=== PATIENT | female | born 2000 ===

== ENCOUNTER 2018-01-21 12:40 | Emergency (ER) | payer SELFPAY ==
--- NOTE | 2018-01-21 12:48 | ER Report ---
History and Physical Time Seen By MD: 12:44 HPI/ROS CHIEF COMPLAINT: abdominal pain, sore throat, nausea with vomiting HISTORY OF PRESENT ILLNESS: Patient is a 17-year-old female here with complaints of nausea, vomiting, diffuse abdominal pain. Vomiting started approximately 2200 last night. She also reports having sore throat several days ago and roommates that were reportedly having similar symptoms and were diagnosed with strep throat. Patient reports she started having her menses however does report some pain in the lower periumbilical area. Patient is afebrile at time of evaluation. Patient denies chest pain, shortness of breath, cough, blurred vision, headache, back pain. Patient does admit to being sexually active. REVIEW OF SYSTEMS: Respiratory: No cough, no dyspnea. Cardiovascular: No chest pain, no palpitations. Gastrointestinal: + vomiting, + abdominal pain, diffuse Musculoskeletal: No back pain. Throat: + mild resolving sore throat Allergies: Coded Allergies: copper (Verified Allergy, Mild, HIVES , 01/21/18) nickel (Verified Allergy, Mild, HIVES, 01/21/18) Home Meds Active Scripts Ondansetron (ZOFRAN ODT) 4 Mg Tab.rapdis, 4 MG PO Q6H Y for NAUSEA/VOMITING, # 20 TAB.JESSICA 0 Refills Prov:EMANIEMELY Nicole DO 01/21/18 Constitutional Vital Sign - Last 24 Hours 01/21/18 01/21/18 01/21/18 01/21/18 12:47 13:00 13:30 14:00 Temp 98.5 Pulse 106 62 65 Resp 18 B/P (MAP) 126/85 118/89 (99) 116/87 (97) 108/77 (87) Pulse Ox 95 95 91 95 O2 Delivery Room Air 01/21/18 14:30 B/P (MAP) 112/72 (85) Pulse Ox 94 Intake and Output 01/21/18 01/21/18 01/22/18 15:00 23:00 07:00 Intake Total 1000 ml Balance 1000 ml Physical Exam General Appearance: The patient is alert, has no immediate need for airway protection and no current signs of toxicity. No acute distress Eyes: Pupils equal and round no injection. Oropharynx: Mild erythema without exudate Respiratory: Chest is non tender, lungs are clear to auscultation. Cardiac: + tachycardia and regular rhythm Gastrointestinal: Abdomen is soft and + diffuse tenderness on palpation, no masses, bowel sounds normal. Musculoskeletal: Neck: Neck is supple and non tender. Extremities have full range of motion and are non tender. Skin: No rashes or lesions. DIFFERENTIAL DIAGNOSIS: After history and physical exam differential diagnosis was considered for abdominal pain including but not limited to appendicitis, cholecystitis, gastritis and urinary tract infection, strep throat, mononucleosis. Medical Decision Making Data Points Result Diagram: 01/21/18 1252 01/21/18 1252 Laboratory Hematology Test 01/21/18 12:46 01/21/18 12:52 Urine Color Yellow Urine Clarity Slightly-cloudy Urine pH 5.0 pH (4.8-9.5) Urine Specific [place] 1.032 Urine Protein 30 mg/dL (NEGATIVE) Urine Glucose (UA) 50 mg/dL (NEGATIVE) Urine Ketones 80 mg/dL (NEGATIVE) Urine Blood Large (NEGATIVE) Urine Nitrite Negative (NEGATIVE) Urine Bilirubin Negative (NEGATIVE) Urine Urobilinogen Negative mg/dL (0.2-1.9) Urine Leukocyte Esterase Trace (NEGATIVE) Urine RBC 193 /HPF (0-2/HPF) Urine WBC 15 /HPF (0-5/HPF) Urine Squamous Epithelial Cells Many /LPF (</=FEW) Urine Renal Epithelial Cells Few /LPF (NONE-FEW) Urine Bacteria Negative /HPF (NONE-FEW) Urine Mucus Few /HPF (NONE-FEW) Red Blood Count 5.77 M/uL (4.17-5.56) Mean Corpuscular Volume 84.2 fL (80.0-96.0) Mean Corpuscular Hemoglobin 28.9 pg (26.0-33.0) Mean Corpuscular Hemoglobin Concent 34.3 g/dL (32.0-36.0) Red Cell Distribution Width 13.3 % (11.5-14.5) Mean Platelet Volume 7.3 fL (7.2-11.1) Neutrophils (%) (Auto) 89.1 % (39.4-72.5) Lymphocytes (%) (Auto) 7.1 % (17.6-49.6) Monocytes (%) (Auto) 3.4 % (4.1-12.4) Eosinophils (%) (Auto) 0.1 % (0.4-6.7) Basophils (%) (Auto) 0.3 % (0.3-1.4) Nucleated RBC Relative Count (auto) 0.0 /100WBC Neutrophils # (Auto) 16.5 K/uL (2.0-7.4) Lymphocytes # (Auto) 1.3 K/uL (1.3-3.6) Monocytes # (Auto) 0.6 K/uL (0.3-1.0) Eosinophils # (Auto) 0.0 K/uL (0.0-0.5) Basophils # (Auto) 0.1 K/uL (0.0-0.1) Nucleated RBC Absolute Count (auto) 0.00 K/uL Sodium Level 138 mmol/L (137-145) Potassium Level 3.5 mmol/L (3.5-5.0) Chloride Level 95 mmol/L (98-107) Carbon Dioxide Level 27 mmol/L (22-31) Blood Urea Nitrogen 12 mg/dl (7-18) Creatinine 0.60 mg/dl (0.52-1.04) Glomerular Filtration Rate Calc > 60.0 Random Glucose 118 mg/dl (75-110) Calcium Level 9.7 mg/dl (8.4-10.2) Total Bilirubin 0.4 mg/dl (0.2-1.3) Aspartate Amino Transf (AST/SGOT) 22 U/L (0-35) Alanine Aminotransferase (ALT/SGPT) 26 U/L (0-56) Alkaline Phosphatase 119 U/L (0-126) Total Protein 8.3 gm/dl (6.3-8.2) Albumin 4.3 g/dl (3.5-5.0) Lipase 35 U/L (23-300) Human Chorionic Gonadotropin, Qual Negative (NEGATIVE) Monoscreen Negative (NEGATIVE) Group A Streptococcus Screen Positive (NEGATIVE) Chemistry Test 01/21/18 12:46 01/21/18 12:52 Urine Color Yellow Urine Clarity Slightly-cloudy Urine pH 5.0 pH (4.8-9.5) Urine Specific [place] 1.032 Urine Protein 30 mg/dL (NEGATIVE) Urine Glucose (UA) 50 mg/dL (NEGATIVE) Urine Ketones 80 mg/dL (NEGATIVE) Urine Blood Large (NEGATIVE) Urine Nitrite Negative (NEGATIVE) Urine Bilirubin Negative (NEGATIVE) Urine Urobilinogen Negative mg/dL (0.2-1.9) Urine Leukocyte Esterase Trace (NEGATIVE) Urine RBC 193 /HPF (0-2/HPF) Urine WBC 15 /HPF (0-5/HPF) Urine Squamous Epithelial Cells Many /LPF (</=FEW) Urine Renal Epithelial Cells Few /LPF (NONE-FEW) Urine Bacteria Negative /HPF (NONE-FEW) Urine Mucus Few /HPF (NONE-FEW) White Blood Count 18.6 k/uL (4.5-11.0) Red Blood Count 5.77 M/uL (4.17-5.56) Hemoglobin 16.7 g/dL (12.0-16.0) Hematocrit 48.6 % (34.0-47.0) Mean Corpuscular Volume 84.2 fL (80.0-96.0) Mean Corpuscular Hemoglobin 28.9 pg (26.0-33.0) Mean Corpuscular Hemoglobin Concent 34.3 g/dL (32.0-36.0) Red Cell Distribution Width 13.3 % (11.5-14.5) Platelet Count 314 K/uL (150-450) Mean Platelet Volume 7.3 fL (7.2-11.1) Neutrophils (%) (Auto) 89.1 % (39.4-72.5) Lymphocytes (%) (Auto) 7.1 % (17.6-49.6) Monocytes (%) (Auto) 3.4 % (4.1-12.4) Eosinophils (%) (Auto) 0.1 % (0.4-6.7) Basophils (%) (Auto) 0.3 % (0.3-1.4) Nucleated RBC Relative Count (auto) 0.0 /100WBC Neutrophils # (Auto) 16.5 K/uL (2.0-7.4) Lymphocytes # (Auto) 1.3 K/uL (1.3-3.6) Monocytes # (Auto) 0.6 K/uL (0.3-1.0) Eosinophils # (Auto) 0.0 K/uL (0.0-0.5) Basophils # (Auto) 0.1 K/uL (0.0-0.1) Nucleated RBC Absolute Count (auto) 0.00 K/uL Glomerular Filtration Rate Calc > 60.0 Calcium Level 9.7 mg/dl (8.4-10.2) Total Bilirubin 0.4 mg/dl (0.2-1.3) Aspartate Amino Transf (AST/SGOT) 22 U/L (0-35) Alanine Aminotransferase (ALT/SGPT) 26 U/L (0-56) Alkaline Phosphatase 119 U/L (0-126) Total Protein 8.3 gm/dl (6.3-8.2) Albumin 4.3 g/dl (3.5-5.0) Lipase 35 U/L (23-300) Human Chorionic Gonadotropin, Qual Negative (NEGATIVE) Monoscreen Negative (NEGATIVE) Group A Streptococcus Screen Positive (NEGATIVE) Urinalysis Test 01/21/18 12:46 Urine Color Yellow Urine Clarity Slightly-cloudy Urine pH 5.0 pH (4.8-9.5) Urine Specific [place] 1.032 Urine Protein 30 mg/dL (NEGATIVE) Urine Glucose (UA) 50 mg/dL (NEGATIVE) Urine Ketones 80 mg/dL (NEGATIVE) Urine Blood Large (NEGATIVE) Urine Nitrite Negative (NEGATIVE) Urine Bilirubin Negative (NEGATIVE) Urine Urobilinogen Negative mg/dL (0.2-1.9) Urine Leukocyte Esterase Trace (NEGATIVE) Urine RBC 193 /HPF (0-2/HPF) Urine WBC 15 /HPF (0-5/HPF) Urine Squamous Epithelial Cells Many /LPF (</=FEW) Urine Renal Epithelial Cells Few /LPF (NONE-FEW) Urine Bacteria Negative /HPF (NONE-FEW) Urine Mucus Few /HPF (NONE-FEW) EKG/Imaging Imaging 2 VIEWS CHEST INDICATION: Epigastric pain and nausea. COMPARISON: None available FINDINGS: Cardiomediastinal silhouette and pulmonary vessels within normal limits. There is no focal infiltrate or lobar consolidation. There is no pneumothorax or pleural effusion. No nodule. Upper abdomen is unremarkable. No acute bony abnormality. The visualized spine does show mild scoliotic curvature. IMPRESSION: 1. No acute cardiopulmonary process. ED Course/Re-evaluation ED Course Patient is a 17-year-old female here with complaints of nausea, vomiting, resolving sore throat, diffuse vague abdominal pain. Patient reportedly has had multiple sick contacts in the form of roommates 1 of which was diagnosed with strep throat presumptively. Due to persistent emesis, labs and electrolytes were checked. Patient reportedly started having her menses yesterday however Beta hCG was checked due to sexually active status. Urinalysis showed blood consistent with menses but HCG was negative. Patient was given a fluid bolus, Zofran and Toradol for analgesia. Strep rapid was +. Pen G was administered. Patient was advised to follow up in the next week for follow up care. Patient was stable at time of discharge. Decision to Disposition Date: January 21, 2018 Decision to Disposition Time: 13:00 Depart Departure Latest Vital Signs Vital Signs Date Time Temp Pulse Resp B/P (MAP) Pulse Ox O2 Delivery O2 Flow Rate FiO2 01/21/18 14:30 112/72 (85) 94 01/21/18 14:00 65 01/21/18 12:47 98.5 18 Room Air Impression: Primary Impression: Nausea & vomiting Additional Impression: Abdominal pain Condition: Improved Disposition: HOME OR SELF-CARE New Scripts Ondansetron (ZOFRAN ODT) 4 Mg Tab.rapdis 4 MG PO Q6H Y for NAUSEA/VOMITING, #20 TAB.JESSICA 0 Refills Prov: EMELY JOAQUIN DO 01/21/18 Patient Instructions: Abdominal Pain (ED), Acute Nausea and Vomiting (ED), Ondansetron (By mouth, Into the mouth) Additional Instructions: You may take 1 tablet of Zofran every 6-8 hours as needed for nausea. Please follow-up with her family doctor in the next week and return promptly if you develop difficulty swallowing, fevers, difficulty breathing, chest pain, shortness breath, worsening abdominal pain. Problem Qualifiers EMELY JOAQUIN DO January 21, 2018 12:48
[2018-01-21] MEDS ORDERED: NS(*) 0.9% 1000 ML BAG 1,000 ML IV ONE (12:54)
[2018-01-21] MEDS ORDERED: KETOROLAC 30 MG/ML VIAL IVP ONE (12:55)
[2018-01-21] MEDS ORDERED: ONDANSETRON 4 MG/2 ML VIAL IVP ONE (12:55)
[2018-01-21 13:07] LABS: PLATELET COUNT, AUTOMATED 314 K/uL (150-450)
[2018-01-21] MEDS ORDERED: PENICILLIN G BENZATHIN IM SUSP IM ONLY ONE (13:25)
[2018-01-21] MEDS ORDERED: ONDA4TAB PO (13:33)
[2018-01-21 14:30] VITALS: BP 112/72
--- NOTE | 2018-01-21 14:34 | RADIOLOGY IMAGING REPORT ---
FACILITY: [facility] [place] PATIENT NAME: Priscila Murrell : 2000 MR: [id number] V: [id number] EXAM DATE: ORDERING PHYSICIAN: EMELY JOAQUIN TECHNOLOGIST: Location: [facility] Patient: Priscila Murrell : 2000 Visit/Account:[id number] Date of Sevice: 01/21/2018 2 VIEWS CHEST INDICATION: Epigastric pain and nausea. COMPARISON: None available FINDINGS: Cardiomediastinal silhouette and pulmonary vessels within normal limits. There is no focal infiltrate or lobar consolidation. There is no pneumothorax or pleural effusion. No nodule. Upper abdomen is unremarkable. No acute bony abnormality. The visualized spine does show mild scoliot ic curvature. IMPRESSION: 1. No acute cardiopulmonary process. Report Dictated By: Tobi Voss at 01/21/2018 2:27 PM Report E-Signed By: Tobi Voss at 01/21/2018 2:30 PM WSN:[id number]
== END 2018-01-21 14:50 | disposition home or self-care (01) ==
LOC: ER 12:48
DX: R10.33 Periumbilical pain (principal); R11.2 Nausea with vomiting, unspecified
CPT/HCPCS: 71046; 81001; 83690; 84703; 85025; 86308; 87081; 87880; 96361; 96374; 96375; 99284; J0561; J1885; J2405; J7030; 82040; 82247; 82310; 82374; 82435; 82565; 82947; 84075; 84132; 84155; 84295; 84450; 84460; 84520

== ENCOUNTER 2018-10-08 11:29 | Emergency (ER) | payer SELFPAY ==
[~2018-10-08 11:29] MED LIST: ONDA4TAB PO
[2018-10-08] MEDS ORDERED: NS(*) 0.9% 1000 ML BAG 1,000 ML IV ONE ×2 (11:48→14:10)
[2018-10-08] MEDS ORDERED: FAMOTIDINE(*) 20MG/50ML PREMIX 50 ML IVPB ONE (11:48)
[2018-10-08] MEDS ORDERED: ONDANSETRON 4 MG/2 ML VIAL IVP ONE ×2 (11:50→13:50)
[2018-10-08] MEDS ORDERED: PROMETHAZINE 25 MG/ML 1 ML AMP IVP ONE (12:05)
[2018-10-08 12:06] LABS: PLATELET COUNT, AUTOMATED 277 K/uL (150-450)
--- NOTE | 2018-10-08 12:24 | ER Report ---
History and Physical Time Seen By MD: 12:00 Hx. of Stated Complaint: Pt. has been vomiting and diaphoretic since 3:00pm. Vomited 5 or 6 times since this morning. Also having diarrhea. Been around others who have been sick. Pt. works in [employer]. Afebrile in triage. Possible chance of HPI/ROS CHIEF COMPLAINT: Vomiting HISTORY OF PRESENT ILLNESS: Patient is a 18-year-old female who presents to the emergency department with complaint of intractable vomiting and sweating since approximately 3 AM this morning. She mitts to having loose watery stools without blood or mucus. She does admit that she's been around other people who are sick at work. Report being sexually active and there is possibility of . Patient denies any other significant past medical history other than scoliosis. Patient reports epigastric abdominal pain that is fairly severe. He denies any fevers or chills. REVIEW OF SYSTEMS: Constitutional: No fever, no chills. Eyes: No discharge. ENT: No sore throat. Cardiovascular: No chest pain, no palpitations. Respiratory: No cough, no shortness of breath. Gastrointestinal: Epigastric abdominal pain, nausea vomiting and diarrhea Genitourinary: No hematuria. Musculoskeletal: No back pain. Skin: No rashes. Neurological: No headache. Allergies: Coded Allergies: copper (Verified Allergy, Mild, HIVES , 01/21/18) nickel (Verified Allergy, Mild, HIVES, 01/21/18) Home Meds Active Scripts Ondansetron Hcl (ZOFRAN) 4 Mg Tablet, 4 MG PO Q8H for Nausea, #15 TAB 0 Refills Prov:JENELLE RAMIREZ MD 10/08/18 Ondansetron (ZOFRAN ODT) 4 Mg Tab.rapdis, 4 MG PO Q6H PRN for NAUSEA/VOMITING, #20 TAB.JESSICA 0 Refills Prov:EMELY JOAQUIN DO 01/21/18 Past Medical/Surgical History Noncontributory towards this chief complaints. Constitutional Vital Sign - Last 24 Hours 10/08/18 10/08/18 11:34 11:38 Temp 97.6 Pulse 73 B/P (MAP) 124/83 (97) 124/83 Pulse Ox 95 O2 Delivery Room Air Physical Exam General Appearance: The patient is alert, has no immediate need for airway protection and no signs of toxicity. Eyes: Pupils equal and round no pallor or injection. ENT, Mouth: Mucous membranes are moist. Respiratory: There are no retractions, lungs are clear to auscultation. Cardiovascular: Regular rate and rhythm. Gastrointestinal: Epigastric abdominal pain no focal tenderness or palpable masses Neurological: Awake and alert Skin: Warm and dry, no rashes. Musculoskeletal: Neck is supple non tender. Extremities are nontender, nonswollen and have full range of motion. Medical Decision Making Data Points Result Diagram: 10/08/18 1150 10/08/18 1150 Laboratory Hematology Test 10/08/18 11:50 10/08/18 14:23 Red Blood Count 5.18 M/uL (4.17-5.56) Mean Corpuscular Volume 87.9 fL (80.0-96.0) Mean Corpuscular Hemoglobin 29.0 pg (26.0-33.0) Mean Corpuscular Hemoglobin Concent 33.0 g/dL (32.0-36.0) Red Cell Distribution Width 13.6 % (11.5-14.5) Mean Platelet Volume 7.6 fL (7.2-11.1) Neutrophils (%) (Auto) 57.7 % (39.4-72.5) Lymphocytes (%) (Auto) 30.9 % (17.6-49.6) Monocytes (%) (Auto) 10.0 % (4.1-12.4) Eosinophils (%) (Auto) 0.7 % (0.4-6.7) Basophils (%) (Auto) 0.7 % (0.3-1.4) Nucleated RBC Relative Count (auto) 0.1 /100WBC Neutrophils # (Auto) 6.7 K/uL (2.0-7.4) Lymphocytes # (Auto) 3.6 K/uL (1.3-3.6) Monocytes # (Auto) 1.1 K/uL (0.3-1.0) Eosinophils # (Auto) 0.1 K/uL (0.0-0.5) Basophils # (Auto) 0.1 K/uL (0.0-0.1) Nucleated RBC Absolute Count (auto) 0.01 K/uL Peripheral Blood Smear No Y/N Sodium Level 138 mmol/L (137-145) Potassium Level 3.5 mmol/L (3.5-5.0) Chloride Level 107 mmol/L (98-107) Carbon Dioxide Level 21 mmol/L (22-31) Blood Urea Nitrogen 12 mg/dl (7-18) Creatinine 0.50 mg/dl (0.52-1.04) Glomerular Filtration Rate Calc > 60.0 Random Glucose 119 mg/dl (75-110) Calcium Level 9.4 mg/dl (8.4-10.2) Total Bilirubin 0.4 mg/dl (0.2-1.3) Aspartate Amino Transf (AST/SGOT) 20 U/L (0-35) Alanine Aminotransferase (ALT/SGPT) 25 U/L (0-56) Alkaline Phosphatase 74 U/L (0-126) Total Protein 7.8 g/dl (6.3-8.2) Albumin 4.5 g/dl (3.5-5.0) Lipase 57 U/L (23-300) Human Chorionic Gonadotropin, Qual Positive (NEGATIVE) Human Chorionic Gonadotropin, Quant 40046 mIU/ml Helicobacter pylori IgG Antibody Negative (NEGATIVE) Urine Color Yellow Urine Clarity Slightly-cloudy Urine pH 5.0 pH (4.8-9.5) Urine Specific [place] 1.030 Urine Protein Trace mg/dL (NEGATIVE) Urine Glucose (UA) Negative mg/dL (NEGATIVE) Urine Ketones >=80 mg/dL (NEGATIVE) Urine Blood Negative (NEGATIVE) Urine Nitrite Negative (NEGATIVE) Urine Bilirubin Negative (NEGATIVE) Urine Urobilinogen Negative mg/dL (0.2-1.9) Urine Leukocyte Esterase Negative (NEGATIVE) Urine RBC None /HPF (0-2/HPF) Urine WBC 3-4 /HPF (0-5/HPF) Urine Squamous Epithelial Cells Few /LPF (</=FEW) Urine Amorphous Crystals Few /HPF Urine Bacteria Few /HPF (NONE-FEW) Urine Mucus None /HPF (NONE-FEW) Chemistry Test 10/08/18 11:50 10/08/18 14:23 White Blood Count 11.5 k/uL (4.5-11.0) Red Blood Count 5.18 M/uL (4.17-5.56) Hemoglobin 15.0 g/dL (12.0-16.0) Hematocrit 45.5 % (34.0-47.0) Mean Corpuscular Volume 87.9 fL (80.0-96.0) Mean Corpuscular Hemoglobin 29.0 pg (26.0-33.0) Mean Corpuscular Hemoglobin Concent 33.0 g/dL (32.0-36.0) Red Cell Distribution Width 13.6 % (11.5-14.5) Platelet Count 277 K/uL (150-450) Mean Platelet Volume 7.6 fL (7.2-11.1) Neutrophils (%) (Auto) 57.7 % (39.4-72.5) Lymphocytes (%) (Auto) 30.9 % (17.6-49.6) Monocytes (%) (Auto) 10.0 % (4.1-12.4) Eosinophils (%) (Auto) 0.7 % (0.4-6.7) Basophils (%) (Auto) 0.7 % (0.3-1.4) Nucleated RBC Relative Count (auto) 0.1 /100WBC Neutrophils # (Auto) 6.7 K/uL (2.0-7.4) Lymphocytes # (Auto) 3.6 K/uL (1.3-3.6) Monocytes # (Auto) 1.1 K/uL (0.3-1.0) Eosinophils # (Auto) 0.1 K/uL (0.0-0.5) Basophils # (Auto) 0.1 K/uL (0.0-0.1) Nucleated RBC Absolute Count (auto) 0.01 K/uL Peripheral Blood Smear No Y/N Glomerular Filtration Rate Calc > 60.0 Calcium Level 9.4 mg/dl (8.4-10.2) Total Bilirubin 0.4 mg/dl (0.2-1.3) Aspartate Amino Transf (AST/SGOT) 20 U/L (0-35) Alanine Aminotransferase (ALT/SGPT) 25 U/L (0-56) Alkaline Phosphatase 74 U/L (0-126) Total Protein 7.8 g/dl (6.3-8.2) Albumin 4.5 g/dl (3.5-5.0) Lipase 57 U/L (23-300) Human Chorionic Gonadotropin, Qual Positive (NEGATIVE) Human Chorionic Gonadotropin, Quant 81520 mIU/ml Helicobacter pylori IgG Antibody Negative (NEGATIVE) Urine Color Yellow Urine Clarity Slightly-cloudy Urine pH 5.0 pH (4.8-9.5) Urine Specific [place] 1.030 Urine Protein Trace mg/dL (NEGATIVE) Urine Glucose (UA) Negative mg/dL (NEGATIVE) Urine Ketones >=80 mg/dL (NEGATIVE) Urine Blood Negative (NEGATIVE) Urine Nitrite Negative (NEGATIVE) Urine Bilirubin Negative (NEGATIVE) Urine Urobilinogen Negative mg/dL (0.2-1.9) Urine Leukocyte Esterase Negative (NEGATIVE) Urine RBC None /HPF (0-2/HPF) Urine WBC 3-4 /HPF (0-5/HPF) Urine Squamous Epithelial Cells Few /LPF (</=FEW) Urine Amorphous Crystals Few /HPF Urine Bacteria Few /HPF (NONE-FEW) Urine Mucus None /HPF (NONE-FEW) Urinalysis Test 10/08/18 14:23 Urine Color Yellow Urine Clarity Slightly-cloudy Urine pH 5.0 pH (4.8-9.5) Urine Specific [place] 1.030 Urine Protein Trace mg/dL (NEGATIVE) Urine Glucose (UA) Negative mg/dL (NEGATIVE) Urine Ketones >=80 mg/dL (NEGATIVE) Urine Blood Negative (NEGATIVE) Urine Nitrite Negative (NEGATIVE) Urine Bilirubin Negative (NEGATIVE) Urine Urobilinogen Negative mg/dL (0.2-1.9) Urine Leukocyte Esterase Negative (NEGATIVE) Urine RBC None /HPF (0-2/HPF) Urine WBC 3-4 /HPF (0-5/HPF) Urine Squamous Epithelial Cells Few /LPF (</=FEW) Urine Amorphous Crystals Few /HPF Urine Bacteria Few /HPF (NONE-FEW) Urine Mucus None /HPF (NONE-FEW) EKG/Imaging Imaging 10/08/2018 12:57:01 pm outside ultrasound was performed which showed a pseudo- gestational sac but no definitive IUP isn't recognized. We will obtain formal pelvic ultrasound. FACILITY: [facility] - [place] PATIENT NAME: Priscila Murrell : 2000 MR: [id number] V: [id number] EXAM DATE: ORDERING PHYSICIAN: JENELLE RAMIREZ TECHNOLOGIST: Location: [facility] Patient: Priscila Murrell : 2000 Visit/Account:[id number] Date of Sevice: 10/08/2018 EXAMINATION: Transabdominal first trimester OB ultrasound HISTORY: Positive hCG COMPARISON: None. LMP: Unknown. FINDINGS: Only a partial examination was performed. The patient declined transvaginal imaging and did not allow the technologist to complete the transabdominal ultrasound examination. The uterus is anteverted in position with normal size and morphology. An intrauterine gestational sac is present containing a yolk sac and pole. By transabdominal imaging the crown-rump length measures 0.42 cm, corresponding with a gestational age of 6 weeks and 1 day. The technologist reports that cardiac activity was seen during real-time imaging. Cardiac activity however was not documented before the patient prematurely terminated the examination. Neither ovary is discretely visualized on this limited transabdominal examination. No free fluid in the pelvis. IMPRESSION: 1. Limited exam. Only a partial transabdominal examination was completed before the patient declined additional imaging. 2. Confirmed intrauterine . By transabdominal imaging the crown-rump length corresponds with a gestational age of 6 weeks and 1 day. Corresponding AZEEM 06/02/2019. 3. cardiac activity was not documented prior to termination of the exam but was reportedly visualized by the technologist during real-time imaging. 4. Nonvisualization of the ovaries. No free fluid in the pelvis. Report Dictated By: Larry Negron MD at 10/08/2018 2:49 PM Report E-Signed By: Larry Negron MD at 10/08/2018 2:56 PM WSN:[id number] Course/Re-evaluation ED Course 10/08/2018 12:24:30 pm patient with intractable vomiting at this time we'll start an IV and check CBC CMP lipase. We'll check test. We'll give IV Zofran and IV fluids. Re-evaluation 10/08/2018 1:12:27 pm no vomiting improved after 4 of Zofran and 25 mg of IV Phenergan. Awaiting OB ultrasound 10/08/2018 1:49:01 pm patient refusing his femoral ultrasound this time secondary to nausea will redosed Zofran. Decision to Disposition Date: Oct 08, 2018 Decision to Disposition Time: 15:06 Depart Departure Latest Vital Signs Vital Signs Date Time Temp Pulse Resp B/P (MAP) Pulse Ox O2 Delivery O2 Flow Rate FiO2 10/08/18 11:38 97.6 73 124/83 95 Room Air Impression: Primary Impression: First trimester Additional Impression: Hyperemesis Condition: Improved Disposition: HOME OR SELF-CARE Referrals: MICAH MASON MD Call in the next 24 hours to [facility] for your current New Scripts Ondansetron Hcl (ZOFRAN) 4 Mg Tablet 4 MG PO Q8H for Nausea, #15 TAB 0 Refills Prov: JENELLE RAMIREZ MD 10/08/18 Departure Forms: ER Transition Record, Medications Reconciliation, Off Work/School Form, School or Work Release?: Work Number of days to be released: 2 Patient Portal Information Patient Instructions: First Trimester (ED), Hyperemesis Gravidarum (GEN) Problem Qualifiers JENELLE RAMIREZ MD Oct 08, 2018 12:24
[2018-10-08 13:30] VITALS: BP 106/57
[2018-10-08] MEDS ORDERED: diphenhydrAMINE 50 MG/ML VIAL IVP ONE (14:10)
[2018-10-08] MEDS ORDERED: ONDA4TAB97 PO (14:55)
--- NOTE | 2018-10-08 15:02 | RADIOLOGY IMAGING REPORT ---
FACILITY: [facility] [place] PATIENT NAME: Priscila Murrell : 2000 MR: [id number] V: [id number] EXAM DATE: ORDERING PHYSICIAN: JENELLE RAMIREZ TECHNOLOGIST: Location: [facility] [place] Patient: Priscila Murrell : 2000 Visit/Account:[id number] Date of Sevice: 10/08/2018 EXAMINATION: Transabdominal first trimester OB ultrasound HISTORY: Positive hCG COMPARISON: None. LMP: Unknown. FINDINGS: Only a partial examination was performed. The patient declined transvaginal imaging and did not allow the technologist to complete the transabdominal ultrasound examination. The uterus is anteverted in position with normal size and morphology. An intrauterine gestational sac is present containing a yolk sac and pole. By transabdominal imaging the crown-rump length ronny sures 0.42 cm, corresponding with a gestational age of 6 weeks and 1 day. The technologist reports that cardiac activity was seen during real-time imaging. Cardiac activ ity however was not documented before the patient prematurely terminated the examination. Neither ovary is discretely visualized on this limited transabdominal examination. No free fluid in t he pelvis. IMPRESSION: 1. Limited exam. Only a partial transabdominal examination was completed before the patient declined additional imaging. 2. Confirmed intrauterine . By transabdominal imaging the crown-rump length corresponds with a gestational age of 6 weeks and 1 day. Corresponding AZEEM 06/02/2019. 3. cardiac activity was not documented prior to termination of the exam but was reportedly visu alized by the technologist during real-time imaging. 4. Nonvisualization of the ovaries. No free fluid in the pelvis. Report Dictated By: Larry Negron MD at 10/08/2018 2:49 PM Report E-Signed By: Larry Negron MD at 10/08/2018 2:56 PM [id number]
== END 2018-10-08 15:59 | disposition home or self-care (01) ==
LOC: ER 11:42
DX: Z33.1 Pregnant state, incidental (principal); Z3A.01 Less than 8 weeks gestation of pregnancy
CPT/HCPCS: 76801; 81001; 83690; 84702; 84703; 85025; 86677; 87491; 87591; 96361; 96365; 96375; 96376; 99284; J1200; J2405; J2550; J3490; J7030; 82040; 82247; 82310; 82374; 82435; 82565; 82947; 84075; 84132; 84155; 84295; 84450; 84460; 84520

== ENCOUNTER 2018-10-10 04:17 | Emergency (ER) | payer SELFPAY ==
[~2018-10-10 04:17] MED LIST changes: +ONDA4TAB97 PO
--- NOTE | 2018-10-10 04:23 | ER Report ---
History and Physical Time Seen By MD: 04:20 HPI/ROS CHIEF COMPLAINT: Vomiting HISTORY OF PRESENT ILLNESS: Patient is a 18-year-old female who presents to the emergency department with complaint of intractable vomiting and nausea since approximately. She seen in the emergency department on 10/08/2013 for similar symptoms. She was diagnosed with a 1st rest her by ultrasound. I treated with IV fluids and antiemetics and was discharged home. Patient did have a 1st trimester ultrasound but was incomplete due to inability to patient tolerated procedure. Based on last menstrual period by of 08/30/2018 patient is approximately 12 weeks 3 days estimated gestational age. This is her 1st . She also admits to some periumbilical abdominal discomfort. She denies any fevers or chills she denies any vaginal bleeding or discharge. REVIEW OF SYSTEMS: Constitutional: No fever, no chills. Eyes: No discharge. ENT: No sore throat. Cardiovascular: No chest pain, no palpitations. Respiratory: No cough, no shortness of breath. Gastrointestinal: Periumbilical abdominal pain, nausea, vomiting no diarrhea Genitourinary: No hematuria. No Vaginal discharge or bleeding Musculoskeletal: No back pain. Skin: No rashes. Neurological: No headache. Allergies: Coded Allergies: copper (Verified Allergy, Mild, HIVES , 10/10/18) nickel (Verified Allergy, Mild, HIVES, 10/10/18) Home Meds Active Scripts Famotidine (PEPCID) 20 Mg Tablet, 20 MG PO BID for 30 Days, #60 TAB 0 Refills Prov:JENELLE RAMIREZ MD 10/10/18 Metoclopramide Hcl (REGLAN) 10 Mg Tablet, 10 MG PO Q6H for Nausea, #30 TAB 0 Refills Prov:JENELLE RAMIREZ MD 10/10/18 Ondansetron Hcl (ZOFRAN) 4 Mg Tablet, 4 MG PO Q8H for Nausea, #15 TAB 0 Refills Prov:JENELLE RAMIREZ MD 10/08/18 Ondansetron (ZOFRAN ODT) 4 Mg Tab.rapdis, 4 MG PO Q6H PRN for NAUSEA/VOMITING, #20 TAB.JESSICA 0 Refills Prov:EMELY JOAQUIN DO 01/21/18 Past Medical/Surgical History Approximately 4 weeks with 1st Constitutional Vital Sign - Last 24 Hours 10/10/18 10/10/18 10/10/18 10/10/18 04:21 04:22 04:30 04:32 Temp 98.3 Pulse 54 50 Resp 16 B/P (MAP) 147/97 (114) 147/97 139/95 (110) Pulse Ox 92 97 O2 Delivery Room Air 10/10/18 10/10/18 10/10/18 10/10/18 04:47 05:00 05:02 05:17 Pulse 53 74 60 B/P (MAP) 119/70 (86) Pulse Ox 94 93 95 10/10/18 10/10/18 10/10/18 05:30 05:35 05:50 Pulse 66 Pulse Ox 96 81 98 Intake and Output0 10/09/18 10/09/18 10/10/18 15:00 23:00 07:00 Intake Total 2050 ml Balance 2050 ml Physical Exam General Appearance: Awake and alert no acute respiratory distress Eyes: Pupils equal and round no injection. Respiratory: Chest is non tender, lungs are clear to auscultation. Cardiac: regular rate and rhythm Gastrointestinal: Abdomen is soft and non tender, no masses, bowel sounds normal. Musculoskeletal: Neck: Neck is supple and non tender. Extremities have full range of motion and are non tender. Skin: No rashes or lesions. Medical Decision Making Data Points Result Diagram: 10/10/1842810/10/18428 Laboratory Hematology Test 10/10/18 04:29 Red Blood Count 5.43 M/uL (4.17-5.56) Mean Corpuscular Volume 87.0 fL (80.0-96.0) Mean Corpuscular Hemoglobin 29.1 pg (26.0-33.0) Mean Corpuscular Hemoglobin Concent 33.4 g/dL (32.0-36.0) Red Cell Distribution Width 13.6 % (11.5-14.5) Mean Platelet Volume 7.9 fL (7.2-11.1) Neutrophils (%) (Auto) 84.0 % (39.4-72.5) Lymphocytes (%) (Auto) 7.3 % (17.6-49.6) Monocytes (%) (Auto) 8.4 % (4.1-12.4) Eosinophils (%) (Auto) 0.0 % (0.4-6.7) Basophils (%) (Auto) 0.3 % (0.3-1.4) Nucleated RBC Relative Count (auto) 0.0 /100WBC Neutrophils # (Auto) 11.6 K/uL (2.0-7.4) Lymphocytes # (Auto) 1.0 K/uL (1.3-3.6) Monocytes # (Auto) 1.2 K/uL (0.3-1.0) Eosinophils # (Auto) 0.0 K/uL (0.0-0.5) Basophils # (Auto) 0.0 K/uL (0.0-0.1) Nucleated RBC Absolute Count (auto) 0.00 K/uL Sodium Level 138 mmol/L (137-145) Potassium Level 3.2 mmol/L (3.5-5.0) Chloride Level 99 mmol/L (98-107) Carbon Dioxide Level 25 mmol/L (22-31) Blood Urea Nitrogen 15 mg/dl (7-18) Creatinine 0.60 mg/dl (0.52-1.04) Glomerular Filtration Rate Calc > 60.0 Random Glucose 102 mg/dl (75-110) Calcium Level 9.5 mg/dl (8.4-10.2) Total Bilirubin 0.4 mg/dl (0.2-1.3) Aspartate Amino Transf (AST/SGOT) 19 U/L (0-35) Alanine Aminotransferase (ALT/SGPT) 29 U/L (0-56) Alkaline Phosphatase 77 U/L (0-126) Total Protein 8.1 g/dl (6.3-8.2) Albumin 4.7 g/dl (3.5-5.0) Lipase 54 U/L (23-300) Helicobacter pylori IgG Antibody Negative (NEGATIVE) Chemistry Test 10/10/18 04:29 White Blood Count 13.8 k/uL (4.5-11.0) Red Blood Count 5.43 M/uL (4.17-5.56) Hemoglobin 15.8 g/dL (12.0-16.0) Hematocrit 47.2 % (34.0-47.0) Mean Corpuscular Volume 87.0 fL (80.0-96.0) Mean Corpuscular Hemoglobin 29.1 pg (26.0-33.0) Mean Corpuscular Hemoglobin Concent 33.4 g/dL (32.0-36.0) Red Cell Distribution Width 13.6 % (11.5-14.5) Platelet Count 273 K/uL (150-450) Mean Platelet Volume 7.9 fL (7.2-11.1) Neutrophils (%) (Auto) 84.0 % (39.4-72.5) Lymphocytes (%) (Auto) 7.3 % (17.6-49.6) Monocytes (%) (Auto) 8.4 % (4.1-12.4) Eosinophils (%) (Auto) 0.0 % (0.4-6.7) Basophils (%) (Auto) 0.3 % (0.3-1.4) Nucleated RBC Relative Count (auto) 0.0 /100WBC Neutrophils # (Auto) 11.6 K/uL (2.0-7.4) Lymphocytes # (Auto) 1.0 K/uL (1.3-3.6) Monocytes # (Auto) 1.2 K/uL (0.3-1.0) Eosinophils # (Auto) 0.0 K/uL (0.0-0.5) Basophils # (Auto) 0.0 K/uL (0.0-0.1) Nucleated RBC Absolute Count (auto) 0.00 K/uL Glomerular Filtration Rate Calc > 60.0 Calcium Level 9.5 mg/dl (8.4-10.2) Total Bilirubin 0.4 mg/dl (0.2-1.3) Aspartate Amino Transf (AST/SGOT) 19 U/L (0-35) Alanine Aminotransferase (ALT/SGPT) 29 U/L (0-56) Alkaline Phosphatase 77 U/L (0-126) Total Protein 8.1 g/dl (6.3-8.2) Albumin 4.7 g/dl (3.5-5.0) Lipase 54 U/L (23-300) Helicobacter pylori IgG Antibody Negative (NEGATIVE) ED Course/Re-evaluation Clinical Indication for ER IV: Hydration, IV Access ED Course 10/10/2018 4:26:40 am this time will be to check abdominal labs, we'll check urinalysis we'll give IV fluids along with Zofran. Patient just had a ultrasound less than 48 hours ago which showed intrauterine with pole. 10/10/2018 5:50:09 am 2 L of normal saline infused patient feeling somewhat better although she did just try to drink some Gatorade and immediately felt the need to vomit. We'll try some IV Reglan at this time. We'll discharge on Reglan and Pepcid. Patient has still not made 1st OB appointment with Dr. Bryan yet she was encouraged to do so. Decision to Disposition Date: Oct 10, 2018 Decision to Disposition Time: 06:28 Depart Departure Latest Vital Signs Vital Signs Date Time Temp Pulse Resp B/P (MAP) Pulse Ox O2 Delivery O2 Flow Rate FiO2 10/10/18 05:50 66 98 10/10/18 05:00 119/70 (86) 10/10/18 04:22 98.3 16 Room Air Impression: Primary Impression: Hyperemesis Condition: Improved Disposition: HOME OR SELF-CARE Referrals: MICAH BRYAN MD Call to schedule initial OB appointment New Scripts Famotidine (PEPCID) 20 Mg Tablet 20 MG PO BID for 30 Days, #60 TAB 0 Refills Prov: JENELLE RAMIREZ MD 10/10/18 Metoclopramide Hcl (REGLAN) 10 Mg Tablet 10 MG PO Q6H for Nausea, #30 TAB 0 Refills Prov: JENELLE RAMIREZ MD 10/10/18 Patient Instructions: Hyperemesis Gravidarum (ED) JENELLE RAMIREZ MD Oct 10, 2018 04:23
[2018-10-10] MEDS ORDERED: FAMOTIDINE(*) 20MG/50ML PREMIX 50 ML IVPB ONE (04:27)
[2018-10-10] MEDS ORDERED: NS(*) 0.9% 1000 ML BAG 1,000 ML IV ONE ×2 (04:27→05:15)
[2018-10-10] MEDS ORDERED: ONDANSETRON 4 MG/2 ML VIAL IVP ONE (04:30)
[2018-10-10 04:52] LABS: PLATELET COUNT, AUTOMATED 273 K/uL (150-450)
[2018-10-10 05:00] VITALS: BP 119/70
[2018-10-10] MEDS ORDERED: METOCLOPRAMIDE 10 MG/2 ML SDV IVP ONE (05:50)
[2018-10-10] MEDS ORDERED: METO-734 PO (05:53)
[2018-10-10] MEDS ORDERED: FAMO20TA28 PO (05:53)
== END 2018-10-10 06:21 | disposition home or self-care (01) ==
LOC: ER 04:20
DX: O21.0 Mild hyperemesis gravidarum (principal); Z3A.12 12 weeks gestation of pregnancy
CPT/HCPCS: 83690; 85025; 86677; 96361; 96374; 96375; 99284; J2405; J2765; J3490; J7030; 82040; 82247; 82310; 82374; 82435; 82565; 82947; 84075; 84132; 84155; 84295; 84450; 84460; 84520